=== PATIENT | female | born 1930 | race Caucasian/White ===

== ENCOUNTER 2016-11-11 19:25 | Emergency (ER) | payer MEDICARE, BC ==
[2016-11-11 19:59] VITALS: BP 132/74; PULSE 85; RESP 20; TEMP 98.2
--- NOTE | 2016-11-11 21:48 | XR ---
Abdomen HISTORY: Pain when urinating, constipation Single frontal view of the abdomen, no comparisons There are fluid levels present. Postop changes are noted. No pneumoperitoneum. Retrocardiac lucency m ay be due to intrathoracic stomach. Lung bases are clear. Bone mineralization is reduced. IMPRESSION: Correlate for enteritis, obstruction not excluded, follow-up as indicated. 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
--- NOTE | 2016-11-11 22:10 | ED ---
General Adult HPI - General Chief complaint: Urogenital Stated complaint: pain, bladder incontinence Time Seen by Provider: 11/11/16 21:40 Source: patient, family, RN notes reviewed Mode of arrival: wheelchair Limitations: altered mental status - History of Present Illness Initial comments: Patient is a pleasant 86-year-old female presenting to the emergency Department with rectal pain. Patient had 2 large bowel movements in the emergency Department and now feels much better. Patient does have some dysuria and urinary incontinence. This is been going on for several days. No fevers. Patient is questionable whether or not she has any abdominal discomfort. No nausea or vomiting. Patient has been somewhat constipated for over a week. - Related Data Home Medications Medication Instructions Recorded Confirmed Aspirin EC [Ecotrin Low Dose] 81 mg PO DAILY@0900 09/02/16 11/11/16 Calcium Carbonate/Vitamin D3 1 tab PO DAILY@0900 09/02/16 11/11/16 [Calcium 600-Vit D3 400 Caplet] Citalopram Hydrobromide [CeleXA] 20 mg PO HS@199909/02/16 11/11/16 Digoxin [Lanoxin] 125 mcg PO DAILY@1700 09/02/16 11/11/16 Diltiazem HCl [Cartia Xt] 120 mg PO DAILY@0900 09/02/16 11/11/16 Docusate [Colace] 100 mg PO HS@199909/02/16 11/11/16 Multivitamins, Thera [Multivitamin] 1 tab PO DAILY@0900 09/02/16 11/11/16 Simvastatin [Zocor] 20 mg PO HS@199909/02/16 11/11/16 Tolterodine [Detrol] 2 mg PO BID@09,199909/02/16 11/11/16 traZODone HCL 50 mg PO HS@199909/02/16 11/11/16 Allergies Allergy/AdvReac Type Severity Reaction Status Date / Time No Known Allergies Allergy Verified 11/11/16 21:06 Review of Systems ROS Statement: Those systems with pertinent positive or pertinent negative responses have been documented in the HPI. ROS Other: All systems not noted in ROS Statement are negative. Constitutional: Denies: fever Eyes: Denies: eye pain ENT: Denies: ear pain Respiratory: Denies: cough Cardiovascular: Denies: chest pain Endocrine: Denies: fatigue Gastrointestinal: Reports: constipation. Denies: vomiting Genitourinary: Reports: urgency, dysuria Musculoskeletal: Denies: back pain Skin: Denies: rash Neurological: Denies: weakness Past Medical History Past Medical History: Dementia History of Any Multi-Drug Resistant Organisms: None Reported Past Surgical History: Cholecystectomy, Orthopedic Surgery Additional Past Surgical History / Comment(s): right foot, colon surgery, colostomy with reversal Past Psychological History: No Psychological Hx Reported Smoking Status: Never smoker Past Alcohol Use History: None Reported Past Drug Use History: None Reported General Exam Limitations: altered mental status General appearance: alert, in no apparent distress Head exam: Present: atraumatic Eye exam: Present: normal appearance Neck exam: Present: normal inspection Respiratory exam: Present: normal lung sounds bilaterally Cardiovascular Exam: Present: regular rate, normal rhythm GI/Abdominal exam: Present: soft, tenderness (Mild tenderness left lower abdomen ), normal bowel sounds. Absent: distended, guarding, rebound, rigid, pulsatile mass Rectal exam: Present: normal inspection. Absent: black stool, bloody stool Extremities exam: Present: normal inspection Neurological exam: Present: alert Psychiatric exam: Present: normal affect, normal mood Skin exam: Absent: rash Course Vital Signs 11/11/16 19:56 Temperature 98.2 F Pulse Rate 85 Respiratory 20 Rate Blood Pressure 132/74 O2 Sat by Pulse 98 Oximetry Medical Decision Making - Medical Decision Making Patient reexamined and symptom-free. Patient updated on results. - Lab Data Lab Results 11/11/16 Range/Units 22:45 Urine Color Yellow Urine Appearance Cloudy H (Clear) Urine pH 8.0 (5.0-8.0) Ur Specific [place] 1.010 (1.001-1.035) Urine Protein Negative (Negative) Urine Glucose (UA) Negative (Negative) Urine Ketones Trace H (Negative) Urine Blood Negative (Negative) Urine Nitrate Negative (Negative) Urine Bilirubin Negative (Negative) Urine Urobilinogen <2.0 (<2.0) mg/dL Ur Leukocyte Esterase Trace H (Negative) Urine RBC 1 (0-5) /hpf Urine WBC 2 (0-5) /hpf Ur Squamous Epith Cells <1 (0-4) /hpf Urine Bacteria Rare H (None) /hpf Urine Mucus Rare H (None) /hpf Urine Yeast (Budding) Few H (None) /hpf - Radiology Data Radiology results: image reviewed (Computed tomography scan of the abdomen pelvis shows large bowel air-fluid levels without obstruction. Possible ileus. Large hiatal hernia.) Disposition Clinical Impression: Constipation Disposition: HOME SELF-CARE Condition: Stable Instructions: Constipation (ED), High Fiber Diet (ED), Ileus (ED) Additional Instructions: Please follow-up with your doctor tomorrow. Return for abdominal pain, vomiting , fevers, worsening symptoms or other concerns. Please have your doctor a few computed tomography scan report. Referrals: Pamela Anna DO [Primary Care Provider] - 1-2 days
--- NOTE | 2016-11-11 22:45 | CT ---
EXAMINATION TYPE: CT abdomen pelvis wo con DATE OF EXAM: 11/11/2016 10:35 PM COMPARISON: NONE HISTORY: Pt states of abdominal pain, diarrhea, and urinary incontinence. CT DLP: 208.7 mGycm Automated exposure control for dose reduction was used. TECHNIQUE: Helical acquisition of images was performed from the lung bases through the pelvis. FINDINGS: There is mild reticular density at the lung bases. There is a large hiatal hernia. Hernia appears to contain proximal small bowel as well as the stomach. There is no pericardial effusion. There is no pleural effusion. Liver shows no focal defect. Spleen appears normal. There is no evidence of a pancreatic mass. Bile d ucts are nondilated. Gallbladder appears normal. There are bilateral renal cortical cysts. The largest is on the lateral left kidney and measures 3.6 cm. There are left renal parapelvic cysts. Exam is limited by lack of any contrast. There are fluid l evels in the right colon and transverse colon. There are fluid levels in the sigmoid colon. There is no evidence of free air. Abdominal aorta is atheromatous. I see no retroperitoneal adenopathy. There is mild enlargement of the large bowel with the fluid levels. I see no wall thickening. There are spondylotic changes in the lumbar spine with mild compression deformities of L4 L3 and T12. There is mild wedging of T9. Bladder distends smoothly. IMPRESSION: VERY LARGE HIATAL HERNIA THAT CONTAINS BOWEL WELL THE STOMACH. MULTIPLE LARGE BOWEL AIR-FLUID LEVELS CONSISTENT WITH DIARRHEA AND LARGE BOWEL ILEUS. I DO NOT SEE EV IDENCE FOR MECHANICAL BOWEL OBSTRUCTION. NO FREE AIR. BILATERAL RENAL CORTICAL CYSTS. A MILD LEFT-CHERELLE ED HYDRONEPHROSIS CANNOT BE ENTIRELY EXCLUDED. LEFT RENAL PARAPELVIC CYSTS. MULTIPLE OSTEOPOROTIC TYPE LUMBAR AND THORACIC COMPRESSION FRACTURES.
[2016-11-11 23:00] LABS: Appearance,Urine Cloudy (Clear); Bacteria,Urine Rare /hpf; Bilirubin,Urine Negative (Negative); Glucose,Urine (UA) Negative (Negative); Ketones,Urine Trace (Negative); Leukocyte Esterase,Urine Trace (Negative); Mucus,Urine Rare /hpf; Nitrite,Urine Negative (Negative); Particle Count 5882; Protein,Urine Negative (Negative); RBC,Urine 1 /hpf (0-5); Squamous Epithelial Cell,Urine <1 /hpf (0-4); UA Billing (MACRO vs. MICRO) MICRO; Urobilinogen,Urine <2.0 mg/dL (<2.0); WBC,Urine 2 /hpf (0-5)
== END 2016-11-12 00:18 | disposition home or self-care (01) ==
LOC: EC 19:25
DX: K59.00 Constipation, unspecified (principal); K44.9 Diaphragmatic hernia without obstruction or gangrene; F03.90 Unspecified dementia, unspecified severity, without behavioral disturbance, psychotic disturbance, mood disturbance, and anxiety; Z79.82 Long term (current) use of aspirin; Z79.899 Other long term (current) drug therapy
CPT/HCPCS: 74000; 74176; 81001; 99284